=== PATIENT | male | born 1960 | race Caucasian/White ===

== ENCOUNTER → 2017-05-06 | Outpatient (CLI) | payer BC | END | disposition home or self-care (01) | LOC: GMAJ 10:28 | PROVIDERS: ATTEND Family Medicine | DX: Z00.00 Encounter for general adult medical examination without abnormal findings (principal) ==

== ENCOUNTER → 2020-01-22 | Outpatient (CLI) | payer OTHER, SELFPAY | END | disposition home or self-care (01) | LOC: YCFC.O 06:32 | PROVIDERS: ATTEND Family Medicine | DX: Z12.5 Encounter for screening for malignant neoplasm of prostate (principal); R53.83 Other fatigue; E78.5 Hyperlipidemia, unspecified ==

== ENCOUNTER 2020-02-04 05:17 | Day surgery (SDC) | payer OTHER, SELFPAY ==
[2020-02-04] MEDS ORDERED: LACTATED RINGERS 1,000 ML ONE (06:34)
[2020-02-04] MEDS ORDERED: PROPOFOL 200 MG/20 ML VIAL IV ONE (07:00)
[2020-02-04] MEDS ORDERED: LIDOCAINE 1% 10 ML VIAL INJ ONE (07:00)
--- NOTE | 2020-02-04 08:53 | OP ---
DATE OF PROCEDURE: 02/04/20 PREOPERATIVE DIAGNOSIS: 1. Screening colonoscopy. POSTOPERATIVE DIAGNOSIS: 1. Normal colon. PROCEDURE: 1. Colonoscopy. SURGEON: Kadeem Wild MD ANESTHESIA: General. FINDINGS: Normal mucosal surfaces, no polyps. PROCEDURE: In the lateral position, general anesthesia was induced. Digital rectal exam was normal. The colonoscope was inserted. A few hemorrhoids were noted, noncomplicated. Insertion using the pediatric scope was without complication. We found our way all the way to the cecum as identified by the appendiceal orifice and the ileocecal valve. Upon care withdrawal and examination of the colon, no polyps were seen. Neither were any mucosal abnormalities. Retroflexion revealed uncomplicated hemorrhoids. There was a single diverticulum in the proximal descending colon, but no significant diverticulosis throughout the sigmoid. The patient tolerated the procedure and was awakened and taken to Recovery to be discharged. #[id number] cc: Fredrick Pacheco MD MTDD
[2020-02-04 09:57] VITALS: O2SAT 98
[2020-02-04 09:59] VITALS: BP 116/75; TEMP 97
== END 2020-02-04 09:30 | disposition home or self-care (01) ==
LOC: EDBD → AMB 05:17
PROVIDERS: ATTEND Surgery
DX: Z12.11 Encounter for screening for malignant neoplasm of colon (principal); K57.30 Diverticulosis of large intestine without perforation or abscess without bleeding; K40.90 Unilateral inguinal hernia, without obstruction or gangrene, not specified as recurrent
CPT/HCPCS: 00812; 45378; J3490; J7120

== ENCOUNTER 2020-02-18 05:23 | Day surgery (SDC) | payer OTHER ==
[2020-02-18] MEDS ORDERED: LACTATED RINGERS 1,000 ML ONE (06:33)
[2020-02-18] MEDS ORDERED: LIDOCAINE 1% 10 ML VIAL INJ ONE (07:00)
[2020-02-18] MEDS ORDERED: DEXAMETHASONE INJ 10 MG/ML VIAL ONE (07:00)
[2020-02-18] MEDS ORDERED: MAGNESIUM SULFATE INJ 1 GM/2 ML VIAL ONE (07:00)
[2020-02-18] MEDS ORDERED: PROPOFOL 200 MG/20 ML VIAL IV ONE (07:00)
[2020-02-18] MEDS ORDERED: BUPIVACAINE 0.5% 30 ML VIAL INJ ONE ×2 (09:06→10:54)
[2020-02-18] MEDS ORDERED: BUPIVACAINE LIPOSOME 13.3 MG/ML VIAL INJ ONE ×2 (09:06→10:54)
[2020-02-18] MEDS ORDERED: SODIUM CHL 0.9% 50ML MIN-BAG+ 50 ML IVPB ONE (09:09)
[2020-02-18] MEDS ORDERED: ceFAZolin SODIUM 1 GM VIAL ONE (09:09)
[2020-02-18] MEDS ORDERED: fentaNYL CITRATE INJ 50 MCG/ML 2 ML AMP ONE (10:43)
[2020-02-18] MEDS ORDERED: MIDAZOLAM INJ 2 MG/2 ML VIAL ONE (10:43)
--- NOTE | 2020-02-18 12:02 | OP ---
DATE OF PROCEDURE: 02/18/20 PREOPERATIVE DIAGNOSIS: 1. Right inguinal hernia. POSTOPERATIVE DIAGNOSIS: 1. Right inguinal hernia. 2. Right retroperitoneal tumor. PROCEDURE: 1. Repair of right inguinal hernia with large PHS mesh. 2. Excision of 4 cm right retroperitoneal tumor. 3. Ilioinguinal nerve block for postoperative pain control. SURGEON: Kadeem Wild MD. ANESTHESIA: General and local. FINDINGS: He had a small indirect with a moderate direct hernia. There was also bulbous fatty tumor coming of the internal ring that was high ligated. The nerve was identified and spared. COMPLICATIONS: None. ESTIMATED BLOOD LOSS: Minimal. SPECIMEN: Fatty tumor. PLAN: Discharge. INDICATION: As stated. PROCEDURE: General anesthesia was induced. He was prepped and draped in sterile fashion. Marcaine 0.5% with epinephrine was used at all incision sites. An ilioinguinal nerve block was performed with Marcaine with Exparel in a fan type technique from the anterior superior iliac spine. We also injected the incision site. An approximately 6 cm incision was made. Subcutaneous tissues were taken down. The subcutaneous vessel was identified, cauterized and ligated. The external oblique aponeurosis was identified. A small gurinder was made. It was opened along its fibers. The nerve was dissected out and retracted superiorly. The cord was then isolated. I identified a moderate- sized direct hernia, weakness in the floor and also the fatty tumor along the cord. This was dissected down to its base and ligated with 3-0 Vicryl. The small hernia and fat that remained was reduced to identify the epigastric vessels. Army-Salvo was used to keep them anteriorly. As we continued our dissection using 3 damp Raytec sponges and finger sweep to help dissect out the preperitoneal plane. The large PHS mesh was then trimmed inferiorly and medially then placed in the preperitoneal plane. We used retractors to confirm it was lying as flat as it could in the intraabdominal space and covering the direct defect as well. It was secured to the tubercle. More local was placed here. A cut was made in external portion, wrapped around the cord, non- stricturing and secured to the shelving edge. It was then laid out laterally underneath the external oblique. The nerve was again identified and out of harm's way underneath the superior portion of the mesh. The external oblique was then closed with a running 2-0 Vicryl. More local was placed. The wound was then closed in two absorbable suture layers. He tolerated the procedure. The patient was awakened and taken to Recovery to be discharged. #[id number] cc: MD ДМИТРИЙ Garcia
[2020-02-18] MEDS ORDERED: HYDROcodone 5MG/APAP 325MG 1 EA TAB ONE (12:25)
[2020-02-18] MEDS ORDERED: HYDROcodone 7.5MG/APAP 325MG 1 EA TAB PO ONE (12:28)
[2020-02-18 13:41] VITALS: BP 138/89; TEMP 97.9; O2SAT 99
== END 2020-02-18 13:25 | disposition home or self-care (01) ==
LOC: AMB 05:23 → EDBD 12:30 → AMB 13:25
PROVIDERS: ATTEND Surgery
DX: K40.90 Unilateral inguinal hernia, without obstruction or gangrene, not specified as recurrent (principal); D17.79 Benign lipomatous neoplasm of other sites; E78.5 Hyperlipidemia, unspecified
CPT/HCPCS: 00830; 49505; J0690; J1100; J2250; J3010; J3475; J3490; J7050; J7120

== ENCOUNTER → 2020-04-06 | Outpatient (CLI) | payer OTHER ==
--- NOTE | 2020-04-06 12:17 | CT ---
EXAM: Abdomen/Pelvis w/wo Contrast INDICATION: RIGHT FLANK PAIN . COMPARISON: None available TECHNIQUE: CT of the abdomen and pelvis was performed before and after the administration of IV contrast. Delayed postcontrast images were also performed. Multiple axial images and multiplanar reconstructions were generated. This exam was performed according to our departmental dose-optimization program, which includes automated exposure control, adjustment of the mA and/or kV according to patient size and/or use of iterative reconstruction technique. FINDINGS: Visualized chest: The visualized lung bases are clear. Heart size is within normal limits. Liver: Unremarkable appearance of the liver. Gallbladder: Unremarkable appearance of the gallbladder. Pancreas: Unremarkable appearance of the pancreas. Spleen: Unremarkable appearance of the spleen. Adrenal glands: Unremarkable appearance of the adrenal glands. Kidneys, ureters, bladder: A 3 x 2 x 2 mm obstructing stone at the right ureterovesical junction produces moderate to severe right hydroureteronephrosis. There is notable asymmetric enlargement of the right kidney with a delayed nephrogram and perinephric stranding. Right periureteral stranding is also present. Punctate nonobstructing stones are also seen in the lower poles of both kidneys. Unremarkable appearance of the left kidney without hydronephrosis. The urinary bladder is mostly collapsed. Stomach and bowel: Unremarkable appearance of the stomach. Mild gaseous distention multiple loops of small bowel and colon. No frankly dilated loops of bowel are identified. The appendix is identified and appears normal. Prostate: Prostatic calcifications are noted. Peritoneum: No free fluid. No pneumoperitoneum. Lymph nodes: No lymphadenopathy. Vasculature: Unremarkable appearance of the visualized major vascular structures. Bones: No acute fracture. No destructive osseous lesion. Degenerative changes in the spine and hips. Body wall: Unremarkable appearance of the body wall and remainder of the visualized soft tissues. IMPRESSION: 1. A 3 x 2 x 2 mm obstructing stone at the right ureterovesical junction produces moderate to severe right hydroureteronephrosis with asymmetric enlargement and perinephric stranding at the right kidney. 2. Mild gaseous distention of multiple loops of small bowel and colon without jensen dilatation. Findings most likely represent ileus. Electronically signed by: Patricia Montana MD 04/06/2020 12:15 PM [employer]
== END ==
LOC: YCFC.O 10:08
PROVIDERS: ATTEND Family Medicine
DX: N13.0 Hydronephrosis with ureteropelvic junction obstruction (principal); R14.0 Abdominal distension (gaseous); N28.9 Disorder of kidney and ureter, unspecified